=== PATIENT | male | born 2000 | race Caucasian/White ===

== ENCOUNTER 2023-01-18 19:26 | Emergency (ER) | payer OTHER ==
[2023-01-18] MEDS ORDERED: KETO10TA PO (19:43)
[2023-01-18] MEDS ORDERED: CLIN150C20 PO (19:43)
--- NOTE | 2023-01-18 19:44 | ED EENT ---
History of Present Illness General Chief Complaint: Dental Problems/Pain Stated Complaint: TOOTH ACHE Nursing Triage Note: Pt complaining of right lower dental pain that started a couple of days ago Source: patient Exam Limitations: no limitations History of Present Illness Date Seen by Provider: Jan 18, 2023 Time Seen by Provider: 19:28 Initial Comments 22-year-old male presents the emergency department today for right lower dental pain. Symptoms present for about 2 days but has had longstanding issues with pain in this tooth as he had "right out in half-way. He states the center of the tooth rotted out make fielded him with the [id number] "stuff." He is trying Tylenol over the last couple days without much relief. He has not seen a dentist. No fevers or chills. Tolerating his secretions. No difficulty swallowing All other systems reviewed and negative except documented per HPI. Voice recognition software was used to help create this chart Allergies and Home Medications Allergies Coded Allergies: Penicillins (Verified Allergy, Unknown, 01/18/23) Patient Home Medication List Home Medication List Reviewed: Yes Review of Systems Review of Systems Constitutional: see HPI Past Bgrheps-Lpqekh-Zjpffo Hx Patient Social History Tobacco Use?: No Use of E-Cig and/or Vaping dev: No Substance use?: No Alcohol Use?: No Pt feels they are or have been: No Family Medical History Reviewed Nursing Family Hx No Pertinent Family Hx Physical Exam Vital Signs Vital Signs - First Documented 01/18/23 19:30 Temp 36.9 Pulse 94 Resp 18 B/P (MAP) 151/88 (109) Pulse Ox 99 O2 Delivery Room Air Height, Weight, BMI Height: '" Weight: lbs. oz. kg; BMI Method: General Appearance: WD/WN, no apparent distress Eyes: bilateral eye normal inspection, bilateral eye PERRL, bilateral eye EOMI Ears: bilateral ear auricle normal, bilateral ear canal normal, bilateral ear TM normal Mouth/Throat: other (There is a decayed tooth in the right lower dentition, premolar. No fluctuance or abscess) Neck: non-tender, full range of motion, supple, normal inspection Cardiovascular: regular rate, rhythm, no murmur Respiratory: chest non-tender, lungs clear Gastrointestinal: non tender, soft Neurologic/Psychiatric: alert, oriented x 3 Progress/Results/Core Measures Results/Orders Vital Signs/I&O 01/18/23 19:30 Temp 36.9 Pulse 94 Resp 18 B/P (MAP) 151/88 (109) Pulse Ox 99 O2 Delivery Room Air Blood Pressure Mean: 109 Departure Communication (Admissions) Patient is hemodynamically stable. No evidence for active abscess. Afebrile and tolerating his own secretions. No evidence for Cami's angina. Discharged in stable condition with antibiotics and pain control Impression Primary Impression: Dental caries Disposition: HOME, SELF-CARE Condition: Stable Departure-Patient Inst. Referrals: NO,LOCAL PHYSICIAN (PCP/Family) Primary Care Physician Patient Instructions: Fractured Tooth (DC) Add. Discharge Instructions: Use the pain medication as prescribed as needed. Use Advil Liqui-Gels squeezed onto the area every 6 hours as needed. Take the antibiotics as prescribed until they are gone. Call the dentist tomorrow to schedule a follow-up appointment. Return to the emergency department for any severe concerns. All discharge instructions reviewed with patient and/or family. Voiced understanding. Scripts Clindamycin HCl (Clindamycin HCl) 150 Mg Capsule 300 MG PO TID for 7 Days, #42 CAP Prov: NATY BANKS DO 01/18/23 Ketorolac Tromethamine (Ketorolac Tromethamine) 10 Mg Tablet 10 MG PO TID for Pain for 3 Days, #9 TAB Prov: NATY BANKS DO 01/18/23 NATY BANKS DO Jan 18, 2023 19:44
[2023-01-18 19:45] VITALS: BP 151/88
[2023-01-18] MEDS ORDERED: KETOROLAC 15 MG/ML VIAL IM ONE (19:45)
== END 2023-01-18 19:48 | disposition home or self-care (01) ==
LOC: ER FS 19:27
DX: K02.9 Dental caries, unspecified (principal); Z88.0 Allergy status to penicillin; Z28.310 Unvaccinated for COVID-19
CPT/HCPCS: 99284

== ENCOUNTER 2023-03-11 09:43 | Emergency (ER) | payer OTHER ==
[~2023-03-11] VITALS: Ht 165 cm; Wt 59.0 kg
[~2023-03-11 09:43] MED LIST: CLIN150C20 PO; KETO10TA PO
--- NOTE | 2023-03-11 09:48 | ED Lower Extremity ---
General Chief Complaint: Foreign Body Stated Complaint: WC RT FOOT FOREIGN OBJECT History of Present Illness Date Seen by Provider: Mar 11, 2023 Time Seen by Provider: 09:48 Initial Comments 22-year-old male is here with complaints of a pallet staple went through his right foot today at work. Patient was wearing steel toed boot but the staple went through below the steel level. Patient is unable to bear weight on that foot. Denies sensory loss. Patient has had a tetanus shot within the past 10 years Allergies and Home Medications Allergies Coded Allergies: Penicillins (Verified Allergy, Unknown, 01/18/23) Patient Home Medication List Home Medication List Reviewed: Yes Clindamycin HCl (Clindamycin HCl) 150 Mg Capsule, 300 MG PO TID Prescribed by: NATY BANKS MD on 01/18/231942 Ketorolac Tromethamine (Ketorolac Tromethamine) 10 Mg Tablet, 10 MG PO TID Prescribed by: NATY BANKS MD on 01/18/231942 Review of Systems Constitutional: no symptoms reported EENTM: no symptoms reported Respiratory: no symptoms reported Cardiovascular: no symptoms reported Gastrointestinal: no symptoms reported Genitourinary: no symptoms reported Musculoskeletal: see HPI Skin: see HPI Psychiatric/Neurological: No Symptoms Reported Past Dhaqqfq-Rlzvyb-Fwwvqx Hx Family Medical History No Pertinent Family Hx Physical Exam Vital Signs Vital Signs - First Documented 03/11/23 09:48 Temp 36.0 Pulse 82 Resp 18 B/P (MAP) 140/76 (97) Pulse Ox 96 O2 Delivery Room Air Capillary Refill : Height, Weight, BMI Height: '" Weight: lbs. oz. kg; BMI Method: General Appearance: WD/WN, moderate distress Feet: right foot normal range of motion, right foot soft tissue tenderness, right foot other (Ligia seen on the dorsum of the foot by the first metatarsal area and the 2 prongs of the other end of the staple is seen on the sole of the foot in between the third and fourth metatarsal area. Sensation intact. N/V bundle intact. Does not appear to go through any major vessels. Appeared to go through the soft tissue only.) Neurologic/Tendon: normal sensation, normal motor functions, normal tendon functions Neurologic/Psychiatric: no motor/sensory deficits, alert, normal mood/affect, oriented x 3 Progress/Results/Core Measures Results/Orders My Orders Orders - KELLEN,KT L MD Foot 3 View Right (03/11/23 10:00) Ketorolac Injection (Toradol Injection) (03/11/23 10:15) Lidocaine 1% Inj 20 Ml (Xylocaine 1% Inj (03/11/23 10:30) Medications Given in ED Current Medications Medications Dose Ordered Sig/Leora Route Start Time Stop Time Status Last Admin Dose Admin Ketorolac Tromethamine 30 mg ONCE ONCE IM 03/11/23 10:15 03/11/23 10:16 DC 03/11/23 10:21 30 MG Vital Signs/I&O 03/11/23 09:48 Temp 36.0 Pulse 82 Resp 18 B/P (MAP) 140/76 (97) Pulse Ox 96 O2 Delivery Room Air Progress Progress Note : Progress Note 1. FOREIGN BODY IN RIGHT FOOT ( PALLET STAPLE): - XR RIGHT FOOT: Foreign body seen, no fractures -Boot and socks was cut away by scissors in the ER. Wound irrigated with sterile water. Staple was cut on the top of the foot with a ring cutter, and each prong was pulled out 1 at a time with pliers, to ensure minimal reinjury. No bleeding after ligia were pulled out. It was apparent the staple penetrated through the soft tissues only. Foot is bandaged and surgical shoe given with crutches. -Tetanus up-to-date - Will cover for pseudomonas infection with Cipro -Prescription given for ciprofloxacin 750 mg twice daily for 7 days -Advised ibuprofen as needed for pain. Ice application advised. Elevate legs. -Follow-up with Ortho clinic in 7 to 10 days -The patient was seen in the ED, and treated appropriately to presentation at a specific point in time. Patient is informed that there is a possibility that disease and illness can evolve and change in acuity rapidly or slowly after patient is discharged from the ER. Precautionary advice given to the patient for immediate return to ER if symptoms worsen or do not resolve, and to seek emergency care sooner rather than later. Pt also advised on the importance of PCP follow up and compliance with management and follow up plan with PCP and/or specialist, as this is part of the management plan. Pt verbally expressed understanding. -Patient does NOT have any risk factors associated with FQ-induced tendon disorders such as age greater than 60 years, corticosteroid therapy, renal failure, diabetes mellitus, and a history of musculoskeletal disorders. Diagnostic Imaging Diagonstic Imaging: Xray Plain Films/CT/US/NM/MRI: other Comments [facility], [place] NAME: LILLIAN VALLEJO [facility] REC#: [id number] PT STATUS: REG ER : 2000 PHYSICIAN: KT FOREMAN MD ADMIT DATE: 03/11/23/ER FS Draft Date of Exam:03/11/23 FOOT 3 VIEW RIGHT INDICATION: Right foot injury 3 views of the right foot show a staple entering the dorsum of the foot at the level of the distal metatarsals passing inferior and lateral from the point of entry with the staple legs appearing to cross themselves. There is no obvious fracture. IMPRESSION: There is large construction staple that appears to pass through the foot from dorsal to plantar surface at the level of the distal 1st, 2nd and 3rd metatarsals. Dictated on workstation # [id number] Dict: 03/11/23 1011 Trans: 03/11/23 1014 [facility] [id number] Interpreted by: ANANDA PASCUAL MD Electronically signed by: Departure Communication (Admissions) Time/Spoke to Consulting Phy: 10:[address] Ramirez, Ortho. Will cut and pull out in the ED. Impression Primary Impression: Foreign body in right foot Qualified Codes: S90.851A - Superficial foreign body, right foot, initial encounter Disposition: HOME, SELF-CARE Condition: Improved Departure-Patient Inst. Referrals: NO,LOCAL PHYSICIAN (PCP) Primary Care Physician JAIRO RAMIREZ MD Patient Instructions: Going Up and Down Curbs or Stairs With a Walker or Crutches, How to Use Crutches, Taking care of cuts, scrapes, and puncture wounds, Wound Care Add. Discharge Instructions: -Prescription given for ciprofloxacin 750 mg twice daily for 7 days -Advised ibuprofen as needed for pain. Ice application advised. Elevate legs. - Crutches and boot. Instructions given. -Follow-up with Ortho clinic in 7 to 10 days, Dr. Ramirez's office. Call for appointment. All discharge instructions reviewed with patient and/or family. Voiced unders tanding. Scripts Ciprofloxacin HCl (Ciprofloxacin HCl) 750 Mg Tablet 750 MG PO BID for 7 Days, #14 TAB Prov: KT FOREMAN MD 03/11/23 Work/School Note: Work Release Form Date Seen in the Emergency Department: Mar 11, 2023 Return to Work: Mar 15, 2023 Restrictions: Need Release from Doctor, Follow Up With [facility] Other Restrictions Listed Below: Crutches, Ortho boot, elevation of leg when sitting. Keep wound clean KT FOREMAN MD Mar 11, 2023 09:48
--- NOTE | 2023-03-11 10:14 | Diagnostic Imaging Report ---
INDICATION: Right foot injury 3 views of the right foot show a staple entering the dorsum of the foot at the level of the distal metatarsals passing inferior and lateral from the point of entry with the staple legs appearing to cross themselves. There is no obvious fracture. IMPRESSION: There is large construction staple that appears to pass through the foot from dorsal to plantar surface at the level of the distal 1st, 2nd and 3rd metatarsals. Dictated by: Dictated on workstation # [id number]
[2023-03-11] MEDS ORDERED: KETOROLAC 30 MG/ML VIAL IM ONE (10:15)
[2023-03-11] MEDS ORDERED: LIDOCAINE 1% INJ 20 ML VIAL INJ ONE (10:30)
[2023-03-11] MEDS ORDERED: CIPR750T4 PO (10:59)
[2023-03-11 11:05] VITALS: BP 140/76
== END 2023-03-11 11:21 | disposition home or self-care (01) ==
LOC: EDUNIT# 09:43 → ER FS 09:45
DX: S90.851A Superficial foreign body, right foot, initial encounter (principal); Z88.0 Allergy status to penicillin; W45.8XXA Other foreign body or object entering through skin, initial encounter; Y92.59 Other trade areas as the place of occurrence of the external cause; Y99.0 Civilian activity done for income or pay
CPT/HCPCS: 73630

== ENCOUNTER 2023-05-23 18:44 | Emergency (ER) | payer OTHER ==
[~2023-05-23] VITALS: Ht 165.1 cm; Wt 58.6 kg
[~2023-05-23 18:44] MED LIST changes: +CIPR750T4 PO
[2023-05-23 18:45] VITALS: BP 133/83
--- NOTE | 2023-05-23 18:55 | ED Upper Extremity ---
General Stated Complaint: RT HAND INJ Source: patient History of Present Illness Date Seen by Provider: May 23, 2023 Time Seen by Provider: 18:46 Initial Comments 23-year-old male presenting with complaints of pain to his right hand. He states that approximately an hour ago he punched a wall. He has pain since then. He did take some ibuprofen after punching the wall. He has pain primarily over the third fourth and fifth metacarpal phalangeal joints. He has abrasions to the hand and states that there was blood on the wall. He rates his pain 10 out of 10. Onset: this evening Severity: severe Pain/Injury Location: right hand Method of Injury: direct blow Modifying Factors: Worse With Movement Allergies and Home Medications Allergies Coded Allergies: Penicillins (Verified Allergy, Unknown, 01/18/23) Patient Home Medication List Home Medication List Reviewed: Yes Ciprofloxacin HCl (Ciprofloxacin HCl) 750 Mg Tablet, 750 MG PO BID Prescribed by: KT FOREMAN MD on 03/11/23 1059 Clindamycin HCl (Clindamycin HCl) 150 Mg Capsule, 300 MG PO TID Prescribed by: NATY BANKS MD on 01/18/231942 Hydrocodone/Acetaminophen (Hydrocodone-Acetamin 5-325 mg) 5 Mg-325 Mg Tablet, 1 TAB PO Q4H PRN for PAIN SEVERE Prescribed by: PRADEEP CARTWRIGHT on 05/23/231900 Ketorolac Tromethamine (Ketorolac Tromethamine) 10 Mg Tablet, 10 MG PO TID Prescribed by: NATY BANKS MD on 01/18/231942 Review of Systems Constitutional: No chills, No fever EENTM: no symptoms reported Respiratory: no symptoms reported Cardiovascular: no symptoms reported Gastrointestinal: no symptoms reported Genitourinary: no symptoms reported Musculoskeletal: see HPI Skin: see HPI Psychiatric/Neurological: No Symptoms Reported Past Oemegsb-Zwekqz-Qwgfpg Hx Patient Social History Tobacco Use?: Yes Tobacco type used: Cigarettes Smoking Status: Current Everyday Smoker Alcohol Use?: Yes Alcohol type: Beer Alcohol Frequency: Couple times a week Family Medical History No Pertinent Family Hx Physical Exam Vital Signs Vital Signs - First Documented 05/23/23 18:45 Temp 36.0 Pulse 107 Resp 16 B/P (MAP) 133/83 (100) Pulse Ox 98 O2 Delivery Room Air Capillary Refill : Height, Weight, BMI Height: '" Weight: lbs. oz. 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 He was neurovascular and tendon intact both pre and post splinting. He tolerated placement of the splinting material without complication. He was placed in a sling to help stabilize his arm and give support. Counseled on follow-up and return precautions. Advised to have a cast placed within the next 7 to 10 days. Progress/Results/Core Measures Results/Orders My Orders Orders - PRADEEP CARTWRIGHT MD Hand 3 View Right (05/23/23 18:47) Ice: Apply To Affected Area (05/23/23 18:47) Elevate Affected Extremity (05/23/23 18:47) Ed Ortho/Other Supplies Order (05/23/23 18:55) Ortho Glass (05/23/23 18:55) Orthopedic Equiment (05/23/23 18:55) Rx-Hydrocodone/Apap 5-325 Mg (Rx-Vicodin (05/23/23 19:15) Medications Given in ED Current Medications Medications Dose Ordered Sig/Leora Route Start Time Stop Time Status Last Admin Dose Admin Acetaminophen/ Hydrocodone Bitart 1 ea Q4H PRN PO 05/23/23 19:15 05/23/23 19:25 DC 05/23/23 19:15 1 EA Vital Signs/I&O 05/23/23 18:45 Temp 36.0 Pulse 107 Resp 16 B/P (MAP) 133/83 (100) Pulse Ox 98 O2 Delivery Room Air Progress Progress Note #1: Progress Note Potential diagnosis of hand fracture, hand contusion Ice and elevate the hand to help with pain. Obtain x-rays of the right hand to look for acute bony abnormality. Progress Note #2: Time: 18:54 Progress Note On my personal interpretation I reviewed he has a minimally displaced boxer's fracture on the right fifth metacarpal. We will place patient in a ulnar gutter splint and advised him to follow-up with orthopedics and primary care. Prescribed a few hydrocodone for severe pain. Hydrocodone/acetaminophen 5/325 1 every 4 hours as needed severe pain. Send with 4 pills tonight and prescription for 3 days to the pharmacy. Diagnostic Imaging Diagonstic Imaging: Xray Plain Films/CT/US/NM/MRI: hand Comments [facility], [place] NAME: LILLIAN VALLEJO [facility] REC#: [id number] PT STATUS: REG ER : 2000 PHYSICIAN: PRADEEP CARTWRIGHT MD ADMIT DATE: 05/23/23/ER FS Draft Date of Exam:05/23/23 HAND 3 VIEW RIGHT EXAM: HAND 3 VIEW RIGHT INDICATION: Right hand pain. Swollen 5th digit. COMPARISON: None. FINDINGS: Transverse angulated fracture of the distal right 5th metacarpal without intra-articular extension. No other fracture or malalignment. Soft tissue shadows are unremarkable. IMPRESSION: Mildly angulated boxer's fracture of the 5th metacarpal. Dictated on workstation # [id number] Dict: 05/23/231904 Trans: 05/23/231906 [facility] [id number] Interpreted by: IVETTE LIMA MD Electronically signed by: Reviewed: Reviewed by Me Departure Impression Primary Impression: Boxer's metacarpal fracture, neck, closed Qualified Codes: S62.339A - Displaced fracture of neck of unspecified metacarpal bone, initial encounter for closed fracture Disposition: 01 HOME, SELF-CARE Condition: Stable Departure-Patient Inst. Decision time for Depature: 18:57 Referrals: CITLALLI SHEARER APRN (PCP) Primary Care Physician [facility] (Family) Primary Care Physician MARGARET WAGNER JUSTIN S MD Patient Instructions: Splint Care ED, Hand Fracture ED Add. Discharge Instructions: Keep splint clean and dry. Wear the splint until you can follow-up with orthopedics within the next 7 to 10 days. They will change her over to a cast. It takes at least 4 to 6 weeks for bones to heal so he will need to be in a cast and/or splint for at least the next 4 to 6 weeks. For severe pain use hydrocodone/acetaminophen. You may also use ice to help with pain and swelling. Try to keep your hand elevated above heart level to help with pain and swelling as well. Use the sling to support your arm. Scripts Hydrocodone/Acetaminophen (Hydrocodone-Acetamin 5-325 mg) 5 Mg-325 Mg Tablet 1 TAB PO Q4H PRN for PAIN SEVERE for 3 Days, #18 TAB 0 Refills Prov: PRADEEP CARTWRIGHT MD 05/23/23 Work/School Note: Work Release Form Date Seen in the Emergency Department: May 23, 2023 Return to Work: May 24, 2023 Restrictions: Need Release from Doctor Other Restrictions Listed Below: Limit use of right hand due to fracture and splint/cast until cleared PRADEEP CARTWRIGHT MD May 23, 2023 18:54
[2023-05-23] MEDS ORDERED: ACHD5005 PO (19:01)
--- NOTE | 2023-05-23 19:07 | Diagnostic Imaging Report ---
EXAM: HAND 3 VIEW RIGHT INDICATION: Right hand pain. Swollen 5th digit. COMPARISON: None. FINDINGS: Transverse angulated fracture of the distal right 5th metacarpal without intra-articular extension. No other fracture or malalignment. Soft tissue shadows are unremarkable. IMPRESSION: Mildly angulated boxer's fracture of the 5th metacarpal. Dictated by: Dictated on workstation # [id number]
== END 2023-05-23 19:17 | disposition home or self-care (01) ==
LOC: EDUNIT# 18:44 → ER FS 18:46
DX: S62.336A Displaced fracture of neck of fifth metacarpal bone, right hand, initial encounter for closed fracture (principal); F17.210 Nicotine dependence, cigarettes, uncomplicated; Z28.310 Unvaccinated for COVID-19; Y04.8XXA Assault by other bodily force, initial encounter
CPT/HCPCS: 29125; 73130